=== PATIENT | male | born 1995 | race Asian ===

== ENCOUNTER 2019-07-14 15:51 | Emergency (ER) | payer OTHER ==
[~2019-07-14] VITALS: Ht 170.2 cm; Wt 62.6 kg
[2019-07-14 15:56] VITALS: BP 144/82
--- NOTE | 2019-07-14 16:03 | NUR ---
Patient ambulated to bed 2. RN evaluating patient at bedside.
--- NOTE | 2019-07-14 16:03 | NUR ---
PT TO BED 4 WITH STEADY GAIT Addendum: 07/14/19 at 1605 by [facility] BED 2
--- NOTE | 2019-07-14 16:09 | NUR ---
PT PRESENTS TO ER WITH C/O CHEST PAIN RADIATING TO LEFT ARM, PT STATES THAT HE FELT NUMBNESS THAT LASTED 10 MINUTES. PT DENIES PAIN OR DISCOMFORT AT THIS TIME. PT DENIES N/V/D AND SOB. NO PAST HX OR NKA. PT STATES THAT HE WAS TAKEN WEIGHT RUDY AND "THINKS MY POTASSIUM MIGHT BE HIGH BECAUSE I LOOKED AT THE NUTRITION LABEL". ER MD TO SEE PT.
--- NOTE | 2019-07-14 16:32 | NUR ---
PT RESTING IN BED TALKING WITH FAMILY MEMBER.
[2019-07-14 17:42] VITALS: BP 144/82
--- NOTE | 2019-07-14 17:42 | NUR ---
Patient discharged with v/s stable. Written and verbal after care instructions given and explained. Patient verbalized understanding. Ambulatory with steady gait. All questions addressed prior to discharge. Advised to follow up with PMD.
== END 2019-07-14 17:42 | disposition home or self-care (01) ==
LOC: MED 15:51
DX: R07.89 Other chest pain (principal)
CPT/HCPCS: 71046; 93005; 99283